=== PATIENT | female | born 1955 | race Caucasian/White ===

== ENCOUNTER 2016-11-09 10:14 | Inpatient (IN) ==
[2016-11-04 16:59] LABS: Blood Urea Nitrogen 16 mg/dl (6-20)
[2016-11-04 17:00] LABS: Basophils # (Auto) 0 K/mcL (0.0-0.3); Basophils % (Auto) 0.7 % (0.0-2.0); Eosinophils # (Auto) 0.2 K/mcL (0.0-0.7); Eosinophils % (Auto) 3.6 % (0.0-7.0); Granulocytes % (Auto) 63.3 % (38.0-78.0); Lymphocytes # (Auto) 1.7 K/mcL (1.5-4.8); Lymphocytes % (Auto) 27.3 % (15.5-49.0); Mean Cell Volume 88.3 fL (80.0-100.0); Mean Corpuscular HGB Conc 32.9 g/dL (31.0-36.0); Monocytes # (Auto) 0.3 K/mcL (0.1-0.9); Monocytes % (Auto) 5.1 % (1.0-9.0); Platelet Count 218 K/mcL (140-440); Red Cell Distribution Width 13.8 % (11.5-14.5)
[~2016-11-09 10:14] MED LIST: ACETAMINOPHEN 500 MG TABLET PO SCH; CELECOXIB 200 MG CAPSULE PO SCH; KETOROLAC 30 MG, ROPIVACAINE HCL/PF 49.5 ML, EPINEPHrine 0.5 MG, 0.9 % SODIUM CHLORIDE ... IJ ONE; PREGABALIN 150 MG CAPSULE PO SCH
[2016-11-09] MEDS ORDERED: 0.9 % SODIUM CHLORIDE 250 ML IV SCH (12:30)
[2016-11-09] MEDS ORDERED: oxyCODONE 10 MG TAB.ER.12H PO SCH ×2 (12:45→21:00)
[2016-11-09] MEDS ORDERED: ceFAZolin 1 GM VIAL ONE (13:56)
[2016-11-09] MEDS ORDERED: WARFARIN 5 MG TABLET PO SCH (14:00)
[2016-11-09] MEDS ORDERED: PHENYLEPHRINE 10 MG/ML VIAL IV ONE (14:30)
[2016-11-09] MEDS ORDERED: PROPOFOL 200 MG/20 ML VIAL IV ONE (14:30)
[2016-11-09] MEDS ORDERED: ROPIVACAINE HCL/PF 30 ML VIAL IJ ONE (14:30)
[2016-11-09] MEDS ORDERED: TRANEXAMIC ACID 1,000 MG/10 ML VIAL IV ONE (14:30)
[2016-11-09] MEDS ORDERED: ONDANSETRON 4 MG/2 ML VIAL IV ONE (14:30)
[2016-11-09] MEDS ORDERED: LIDOCAINE HCL/PF 100 MG/5 ML SYRINGE IV ONE (14:30)
[2016-11-09] MEDS ORDERED: GLYCOPYRROLATE 0.2 MG/ML VIAL IV ONE (14:30)
[2016-11-09] MEDS ORDERED: MIDAZOLAM 5 MG/5 ML VIAL IV ONE (14:30)
[2016-11-09] MEDS ORDERED: DEXAMETHASONE 10 MG/ML VIAL IV ONE (14:30)
[2016-11-09] MEDS ORDERED: fentaNYL 100 MCG/2 ML VIAL IV ONE (14:30)
[2016-11-09] MEDS ORDERED: PROMETHAZINE 25 MG/ML VIAL IM ONE (15:23)
[2016-11-09] MEDS ORDERED: FLUMAZENIL 0.1 MG/ML ML IV PRN (15:23)
[2016-11-09] MEDS ORDERED: PROMETHAZINE 25 MG/ML VIAL IV PRN (15:23)
[2016-11-09] MEDS ORDERED: MEPERIDINE 50 MG/ML SYRINGE IM ONE (15:23)
[2016-11-09] MEDS ORDERED: BENZOCAINE/MENTHOL 1 LOZENGE PO PRN ×2 (15:23→15:57)
[2016-11-09] MEDS ORDERED: ONDANSETRON 4 MG/2 ML VIAL IV PRN (15:23)
[2016-11-09] MEDS ORDERED: METHOCARBAMOL 1,000 MG/10 ML VIAL IV PRN (15:23)
[2016-11-09] MEDS ORDERED: ePHEDrine 50 MG/ML AMPUL IV PRN (15:23)
[2016-11-09] MEDS ORDERED: LACTATED RINGERS 250 ML IV PRN (15:23)
[2016-11-09] MEDS ORDERED: NALOXONE HCL 0.4 MG/ML VIAL IV PRN ×2 (15:23→18:47)
[2016-11-09] MEDS ORDERED: diphenhydrAMINE 50 MG/ML VIAL IV PRN (15:23)
[2016-11-09] MEDS ORDERED: MEPERIDINE 25 MG/ML SYRINGE IV PRN (15:23)
[2016-11-09] MEDS ORDERED: IPRATROPIUM/ALBUTEROL 3 ML AMPUL.NEB NEB PRN (15:23)
[2016-11-09] MEDS ORDERED: METOCLOPRAMIDE 10 MG/2 ML VIAL IV PRN (15:23)
[2016-11-09] MEDS ORDERED: LACTATED RINGERS 1,000 ML IV SCH (15:30)
[2016-11-09] MEDS ORDERED: GENTAMICIN SULFATE 800 MG/20 ML VIAL IR ONE (15:36)
[2016-11-09] MEDS ORDERED: POLYETHYLENE GLYCOL 3350 17 GM PACKET PO PRN (15:57)
[2016-11-09] MEDS ORDERED: MAGNESIUM HYDROXIDE 30 ML ORAL.SUSP PO PRN (15:57)
[2016-11-09] MEDS ORDERED: BISACODYL 10 MG SUPP.RECT PR PRN (15:57)
[2016-11-09] MEDS ORDERED: TRANEXAMIC ACID 1,000 MG/10 ML VIAL IV SCH (15:57)
[2016-11-09] MEDS ORDERED: FLEETS ADULT ENEMA PR PRN (15:57)
[2016-11-09] MEDS ORDERED: HYDROmorphone 2 MG/ML SYRINGE IV PRN (15:57)
[2016-11-09] MEDS ORDERED: TEMAZEPAM 15 MG CAPSULE PO PRN ×2 (15:57→21:00)
--- NOTE | 2016-11-09 15:57 | Brief Operative Note ---
Date of procedure: 11/09/16 Pre-op diagnosis: right knee djd Post-op diagnosis: same Procedure: right total knee Grafts/Implants: Yes (issa tka) Anesthesia: GETA Findings: djd 3 compartment Complications: none Surgeon: Emmanuel Hurtado Assistant Professor Of Chemistry: Harry Corrales Estimated blood loss (cc): 40 Tourniquet Time (Minutes): 45 Specimens Removed/Pathology: none sent Condition: stable Disposition: PACU
[2016-11-09] MEDS: fentaNYL 100 MCG/2 ML VIAL IV PRN ×7 (16:32→17:04)
[2016-11-09] MEDS ORDERED: LORazepam 2 MG/ML VIAL IV ONE ×2 (16:53→17:00)
[2016-11-09] MEDS ORDERED: HALOPERIDOL LACTATE 5 MG/ML VIAL IV ONE (16:54)
[2016-11-09] MEDS ORDERED: LORazepam 2 MG/ML VIAL ONE (17:01)
[2016-11-09] MEDS ORDERED: HYDROcodone/APAP 10/325MG TABLET PO PRN (17:25)
--- NOTE | 2016-11-09 17:27 | Operative Note ---
DATE OF OPERATION: 11/09/2016 PREOPERATIVE DIAGNOSIS: Right knee degenerative arthritis at least of the medial compartment and some of the trochlear groove. POSTOPERATIVE DIAGNOSIS: Right knee degenerative arthritis at least of the medial compartment and some of the trochlear groove with the addition of arthritis and full-thickness defect laterally. PROCEDURE: Right total knee arthroplasty. SURGEON: Emmanuel Hurtado MD. TECHNICAL SUPPORT AGENT: Harry Corrales PA-C. TOURNIQUET TIME: 45 minutes. ESTIMATED BLOOD LOSS: 50 mL. IMPLANTS: A size 4 femur and size 5 tibial baseplate with an 11 mm poly insert with a 36 mm patellar button, all cemented components. DESCRIPTION OF PROCEDURE: The patient was brought to the operating room and put to sleep with general LMA anesthesia. Once asleep, the patient had the right leg sterilely prepped and draped in the usual sterile fashion. Once we confirmed this was the operative site, we then made a midline incision and a mid vastus approach was performed. We inspected all compartments of the knee. This revealed severe arthritis of medial compartment and severe arthritis in the trochlear groove, both in the trochlear groove and the patella with full-thickness defects. Once this was done, we then inspected the lateral compartment which revealed a small full-thickness defect. This demonstrated arthritis starting in all three compartments. At this point, we proceeded with a total knee arthroplasty. We sterilely prepped and draped the right lower extremity, placed an intramedullary guide enrico, made our distal femoral cut. Once this was done, we made an anterior, posterior chamfer cut, size 4 for the femur. The tibia measured a size 5. We cut this at 9 mm below the medial compartment. We removed the remnants of the meniscus and spurs posteriorly. We preserved the posterior cruciate ligament. Once this was done, we then punched into place the tibial baseplate, size 5 with external rotation. We sized the femur to a size 4. This was tapped into place and trialed a size 9 poly and then a size 11. The 11 was most appropriate with stability at flexion, extension, mid flexion. We then prepared the patella measured 23 mm. This was cut to 14 mm in total thickness and then a 36 mm patellar button was drilled into place and trialed. This seemed to fit anatomically. We then irrigated thoroughly and cemented into place the above-mentioned sizes. Excess cement was removed and an 11 mm poly was inserted. We irrigated and injected the soft tissues with the post-injection formula, and then closed the capsule with #2 Ethibond. An 0 double-armed Maxon stitch was interwoven with an interlocking stitch medial capsule. We closed the skin with 2-0 Vicryl and adhesive closure anteriorly. The patient tolerated this well. RBH:[id number] Job ID: [id number] Doc ID: [id number] Emmanuel Hurtado MD
[2016-11-09] MEDS: 0.45 % SODIUM CHLORIDE 1,000 ML IV SCH (17:33)
--- NOTE | 2016-11-09 18:46 | XRay Report ---
HISTORY: Reason for Exam:Post -op total FINDINGS: There is well positioned total knee prosthesis. No fracture is present. There is gas in the soft tissues due to the procedure. IMPRESSION: Well-positioned right knee prosthesis Interpreted and Authenticated by: Neftali Alvarado 11/09/16
[2016-11-09] MEDS: KETOROLAC 15 MG/ML VIAL IV SCH (19:06)
[2016-11-09] MEDS: ASPIRIN 325 MG ENTERIC COATED TABLET PO SCH (21:57)
[2016-11-09] MEDS: ceFAZolin 1 GM VIAL IV SCH (21:57)
[2016-11-09] MEDS: AMITRIPTYLINE 10 MG TABLET PO SCH (22:19)
[2016-11-09] MEDS: DOCUSATE SODIUM 100 MG CAPSULE PO SCH (22:19)
[2016-11-09] MEDS: SENNOSIDES 1 TABLET PO SCH (22:20)
[2016-11-09] MEDS: 0.9 % SODIUM CHLORIDE 10 ML SYRINGE IV SCH (22:20)
[2016-11-09] MEDS: morphine 15 MG TAB.SR.12H PO SCH (22:20)
[2016-11-09] MEDS: CYCLOBENZAPRINE 10 MG TABLET PO SCH (22:20)
[2016-11-10] MEDS: KETOROLAC 15 MG/ML VIAL IV SCH ×5 (00:52→23:53)
[2016-11-10] MEDS: 0.45 % SODIUM CHLORIDE 1,000 ML IV SCH ×2 (03:31→16:58)
[2016-11-10] MEDS: ceFAZolin 1 GM VIAL IV SCH (06:01)
[2016-11-10] MEDS: 0.9 % SODIUM CHLORIDE 10 ML SYRINGE IV SCH ×3 (06:02→22:49)
--- NOTE | 2016-11-10 07:33 | Orthopedic Progress Note ---
Subjective Patient information: Note initiated : 11/10/16 at 7:31 am Service Date, if different from initiated Date: [] Patient: Rola Hoskins 61 y/o F admitted on 11/09/16 for Right Uni Medial CARMEN Arthroplasty. Chief Complaint: [Pt is stable this morning on post operative day 1 without any significant concerns or complaints. Patients vital signs have remained stable. Patients dressing is dry and exhibits a grossly intact neurovascular and neuromotor exam. Patients 10 point ROS is otherwise negative. ] Objective Vital signs: Vital Signs Temp Pulse Pulse Resp BP Pulse Ox 11/10/16 04:00 97.8 F 66 14 106/71 98 11/10/16 03:00 98 11/09/16 23:51 97.2 F L 93 H 14 105/68 96 11/09/16 23:00 96 11/09/16 20:12 73 112/71 97 11/09/16 20:00 98 11/09/16 19:57 97 11/09/16 19:12 66 109/72 11/09/16 18:32 68 116/76 93 11/09/16 18:12 72 103/69 11/09/16 17:57 78 114/75 100 11/09/16 17:42 73 99/65 99 11/09/16 17:27 73 101/66 98 11/09/16 17:20 16 99/65 98 11/09/16 17:13 97.3 F L 69 12 98/53 99 11/09/16 17:02 97.3 F L 87 12 114/90 100 11/09/16 16:47 70 12 125/63 100 11/09/16 16:32 69 16 117/65 100 11/09/16 16:17 97.8 F 102 H 12 152/73 100 11/09/16 10:40 98.5 F 70 18 101/83 100 Intake and Output 11/09/16 11/10/16 11/10/16 21:59 05:59 13:59 Intake Total 1700 / 1700 1200 / 1200 Output Total 1250 / 1250 Balance 1700 / 1700 -50 / -50 Intake: IV 1000 / 1000 Sodium Chloride 0.45% 1, 1000 / 1000 000 ml @ 125 mls/hr IV . Q8H [facility] Rx#:[id number] Oral 200 / 200 IV - Manual Only 1700 / 1700 Output: Urine Catheter Amount 1250 / 1250 Other: Weight 233 lb Intake & Output: Intake & Output 11/09/16 11/10/16 11/10/16 21:59 05:59 13:59 Intake Total 1700 / 1700 1200 / 1200 Output Total 1250 / 1250 Balance 1700 / 1700 -50 / -50 Weight 233 lb Intake: IV 1000 / 1000 Sodium Chloride 0.45% 1, 1000 / 1000 000 ml @ 125 mls/hr IV . Q8H [facility] Rx#:[id number] Oral 200 / 200 IV - Manual Only 1700 / 1700 Output: Urine Catheter Amount 1250 / 1250 Incision: Yes healing Incision clean and dry: Yes Dressing: Yes clean Weight bearing status: partial Neurological exam IM: Yes motor sensory intact, Yes neurovascular intact Extremities exam IM: Yes Foot pink and warm, Yes neurovascular intact - Labs CBC & BMP: 11/10/16 05:05 11/04/16 14:25 Labs: 11/10/16 11/04/16 05:05 14:25 Hgb 14.0 Hct 38.9 42.4 Assessment and Plan (1) Hx of total knee arthroplasty Patient has been educated regarding wound care and dressings, follow up recommendations, and medication use. We will f/u with the patient within 2-3 weeks for wound check. Status: Acute
--- NOTE | 2016-11-10 07:36 | Discharge Summary ---
Ortho Discharge - TKA - Patient Instructions Diet: Regular Diet Activity: activity as tolerated, weight bearing as tolerated Total Knee Protocol: For Total Knee: Start ROM DEMARCUS with stationary bike or rocking chair. Work on gaining full extension of knee. Posterior dislocation precautions provided. Hip abductor strengthening and gait training instructions provided. Apply Cryocuff as instructed. Dressing Care: May shower in 2 days Patient Education: Total Knee Replacement (DC) - Problem Maintenance (1) Hx of total knee arthroplasty Status: Acute - Follow Up Plan Follow Up Appointments: Emmanuel Hurtado MD [Physician] - 11/24/16 2:20 pm Disposition: Home, Self-Care Prognosis: Good Rehab Potential: Good Overall status at discharge: patient is progressing back to baseline - Orders For Discharge Prescriptions: Aspirin [Ecotrin] 325 mg PO BID #60 tab.ec Docusate Sodium [Colace] 100 mg PO BID #60 capsule Additional Discharge Orders: Physical Therapy at Discharge - TKA Location: Determined By Patient CPM Discharge Order Location: Determined By Patient Toilet Riser Discharge Order Location: Determined By Patient Walker Location: Determined By Patient
[2016-11-10] MEDS: ASPIRIN 325 MG ENTERIC COATED TABLET PO SCH ×2 (08:04→21:06)
[2016-11-10] MEDS: morphine 15 MG TAB.SR.12H PO SCH ×3 (08:05→21:06)
[2016-11-10] MEDS: CYCLOBENZAPRINE 10 MG TABLET PO SCH ×3 (08:05→21:06)
[2016-11-10] MEDS: DOCUSATE SODIUM 100 MG CAPSULE PO SCH ×2 (08:05→21:06)
[2016-11-10] MEDS: oxyCODONE HCL 5 MG TABLET PO PRN ×3 (08:34→22:28)
[2016-11-10] MEDS ORDERED: SHARK CARTILAGE PO SCH (09:00)
[2016-11-10] MEDS: METHOCARBAMOL 750 MG TABLET PO PRN ×2 (11:12→22:28)
[2016-11-10] MEDS: AMITRIPTYLINE 10 MG TABLET PO SCH (21:06)
[2016-11-10] MEDS: SENNOSIDES 1 TABLET PO SCH (21:06)
[2016-11-11] MEDS: oxyCODONE HCL 5 MG TABLET PO PRN ×3 (00:49→13:12)
[2016-11-11] MEDS: ACETAMINOPHEN 325 MG TABLET PO PRN ×3 (03:21→17:49)
[2016-11-11] MEDS: KETOROLAC 15 MG/ML VIAL IV SCH ×2 (05:08→12:25)
[2016-11-11] MEDS: 0.9 % SODIUM CHLORIDE 10 ML SYRINGE IV SCH ×3 (05:10→21:36)
[2016-11-11] MEDS: METHOCARBAMOL 750 MG TABLET PO PRN ×3 (06:12→17:50)
--- NOTE | 2016-11-11 07:12 | Orthopedic Progress Note ---
Subjective Patient information: Note initiated : 11/11/16 at 7:11 am Service Date, if different from initiated Date: [] Patient: Rola Hoskins 61 y/o F admitted on 11/09/16 for Right Uni Medial CARMEN Arthroplasty. Chief Complaint: [co of pain and is amb well] Objective Vital signs: Vital Signs Temp Pulse Resp BP Pulse Ox 11/11/16 03:16 97.9 F 86 20 103/66 95 11/11/16 03:00 95 11/11/16 00:00 98.3 F 86 20 117/80 99 11/10/16 23:00 99 11/10/16 20:00 97.9 F 97 H 18 105/50 95 11/10/16 19:00 95 11/10/16 15:18 99.0 F 88 18 87/50 95 11/10/16 11:45 98 F 83 18 99/65 98 11/10/16 11:00 98 11/10/16 08:00 97.1 F L 66 14 105/71 97 11/10/16 07:56 97 Intake and Output 11/10/16 11/11/16 11/11/16 21:59 05:59 13:59 Intake Total 200 / 200 350 / 350 Output Total Balance 199 / 199 350 / 350 Intake: Oral 200 / 200 350 / 350 Output: Void Amount Other: # Voids 1 1 Weight 237 lb Intake & Output: Intake & Output 11/10/16 11/11/16 11/11/16 21:59 05:59 13:59 Intake Total 200 / 200 350 / 350 Output Total Balance 199 / 199 350 / 350 Weight 237 lb Intake: Oral 200 / 200 350 / 350 Output: Void Amount Other: # Voids 1 1 Incision: Yes healing Incision clean and dry: Yes Dressing: Yes clean Weight bearing status: full Neurological exam IM: Yes oriented X3, Yes neurovascular intact Extremities exam IM: Yes pedal edema, Yes Foot pink and warm, Yes neurovascular intact - Labs CBC & BMP: 11/10/16 05:05 11/04/16 14:25 Labs: 11/10/16 11/04/16 05:05 14:25 Hgb 14.0 Hct 38.9 42.4
[2016-11-11] MEDS: CYCLOBENZAPRINE 10 MG TABLET PO SCH ×3 (09:20→21:35)
[2016-11-11] MEDS: DOCUSATE SODIUM 100 MG CAPSULE PO SCH ×2 (09:20→21:35)
[2016-11-11] MEDS: morphine 15 MG TAB.SR.12H PO SCH ×3 (09:20→21:35)
[2016-11-11] MEDS: ASPIRIN 325 MG ENTERIC COATED TABLET PO SCH ×2 (09:20→21:35)
[2016-11-11] MEDS: ONDANSETRON 4 MG/2 ML VIAL IV PRN (09:21)
[2016-11-11] MEDS: SENNOSIDES 1 TABLET PO SCH (21:35)
[2016-11-11] MEDS: AMITRIPTYLINE 10 MG TABLET PO SCH (21:36)
[2016-11-12] MEDS: METHOCARBAMOL 750 MG TABLET PO PRN (00:36)
[2016-11-12] MEDS: ONDANSETRON 4 MG/2 ML VIAL IV PRN ×2 (04:10→08:03)
[2016-11-12] MEDS: ACETAMINOPHEN 325 MG TABLET PO PRN (04:19)
[2016-11-12] MEDS: morphine 15 MG TAB.SR.12H PO SCH (08:03)
[2016-11-12] MEDS: ASPIRIN 325 MG ENTERIC COATED TABLET PO SCH (08:03)
[2016-11-12] MEDS: DOCUSATE SODIUM 100 MG CAPSULE PO SCH (08:03)
[2016-11-12] MEDS: 0.9 % SODIUM CHLORIDE 10 ML SYRINGE IV SCH (08:03)
[2016-11-12] MEDS: CYCLOBENZAPRINE 10 MG TABLET PO SCH (08:03)
== END 2016-11-12 10:50 | disposition home or self-care (01) | DRG 470 ==
LOC: SUR 10:14 → MEDSUR 17:20
PROVIDERS: ADMIT Orthopaedic Surgery; ATTEND Orthopaedic Surgery